=== PATIENT | female | born 1950 | race Caucasian/White ===

== ENCOUNTER 2018-08-03 11:13 | Inpatient (IN) | payer MEDICARE, OTHER ==
[2018-08-03] MEDS: ONDANSETRON 4 MG INJ IV (11:47)
[2018-08-03] MEDS: morphine 4 MG/ML VIAL IV (11:47)
[2018-08-03] MEDS: SODIUM CHLORIDE 0.9% 1L BAG IV* (11:47)
[2018-08-03 11:51] LABS: ADD MAN DIFF? NO
[2018-08-03 12:00] LABS: ABNORMAL IP MESSAGE 1; BASOPHILS % 0.3 % (0.0-2.0); HEMATOCRIT 45.6 % (37.0-47.0); HEMOGLOBIN 14.7 g/dl (12.0-16.0); LYMPHOCYTES # 1.2 10^3/ul (0.8-2.9); LYMPHOCYTES % 7.9 % (15.0-51.0); MEAN CORPUSCULAR HEMOGLOBIN 27.3 pg (29.0-33.0); MEAN CORPUSCULAR HGB CONC 32.2 g/dl (32.0-37.0); MEAN CORPUSCULAR VOLUME 84.8 fl (82.0-101.0); MEAN PLATELET VOLUME 10.4 fl (7.4-10.4); MONOCYTE # 3.2 10^3/ul (0.3-0.9); MONOCYTES % 20.8 % (0.0-11.0); NEUTROPHIL # 10.7 10^3/ul (1.6-7.5); NEUTROPHILS % 69.2 % (39.0-77.0); NUCLEATED RED BLOOD CELLS% 0.2 /100WBC (0.0-0.0); PLATELET COUNT 84 10^3/UL (140-415); RED BLOOD COUNT 5.38 10^6/ul (4.20-5.40); RED CELL DISTRIBUTION WIDTH 19.1 % (11.5-14.5)
[2018-08-03 12:00] LABS: WHITE BLOOD COUNT 15.4 10^3/ul (4.8-10.8)
[2018-08-03 12:07] LABS: POSITIVE DIFF @See below
[2018-08-03 12:17] LABS: ALANINE AMINOTRANSFERASE 50 IU/L (13-69); ALBUMIN 2.8 g/dl (3.3-4.9); ALKALINE PHOSPHATASE 236 IU/L (42-121); ANION GAP 19 (8-16); ASPARTATE AMINO TRANSFERASE 119 IU/L (15-46); BILIRUBIN,INDIRECT 1.8 mg/dl (0-1.1); BILIRUBIN,TOTAL 8.4 mg/dl (0.2-1.3); BLOOD UREA NITROGEN 20 mg/dl (7-20); CALCIUM 9.1 mg/dl (8.4-10.2); CARBON DIOXIDE 26 mmol/L (21-31); CHLORIDE 86 mmol/L (97-110); CREATININE 0.79 mg/dl (0.44-1.00); GLUCOSE 206 mg/dl (70-220); LIPASE 1230 U/L (23-300); POTASSIUM 4.3 mmol/L (3.5-5.1); SODIUM 127 mmol/L (135-144)
[2018-08-03 12:18] LABS: INR 1.29; PARTIAL THROMBOPLASTIN TIME 36.7 Sec (23.0-35.0); PROTIME 16.3 Sec (11.9-14.9); PT RATIO 1.3
[2018-08-03 12:27] LABS: TROPONIN-I < 0.012 ng/ml (0.000-0.120)
[2018-08-03] MEDS: PIPER-TAZO 3.375 GM IV (PMX) 100 ML IVPB ×3 (13:38→23:13)
[2018-08-03 13:39] LABS: ANISOCYTOSIS 1+ (0-0); BAND NEUTROPHILS #M 1.3 10^3/ul (0.0-0.6); BAND NEUTROPHILS % (M) 9 % (0-4); GIANT THROMBO% (M) 1 % (0-0); LYMPHOCYTES #M 0.1 10^3/ul (0.8-2.9); LYMPHOCYTES % (M) 1 % (15-51); MICROCYTOSIS 1+ (0-0); MONOCYTES % (M) 13 % (0-11); PLATELET ESTIMATE DECREASED; POIKILOCYTOSIS 2+ (0-0); POLYCHROMASIA 1+ (0-0); PROMYELOCYTES #M 0.1 10^3/ul (0-0); PROMYELOCYTES % (M) 1 % (0-0); REACTIVE LYMPHOCYTES #M 0.1 10^3/ul (0.0-0.0); REACTIVE LYMPHOCYTES% (M) 1 % (0-0); SEG NEUT #M 11.8 10^3/ul (1.6-7.5); SEGMENTED NEUTROPHILS (M) % 75 % (39-77); SMUDGE%M 23 % (0-0)
[2018-08-03] MEDS ORDERED: ACETAMINOPHEN 325 MG TAB PO ×2 (14:00→14:30)
[2018-08-03] MEDS ORDERED: ONDANSETRON 4 MG INJ IV ×2 (14:00→14:30)
[2018-08-03] MEDS ORDERED: NITROGLYCERIN (SL) 0.4 MG TAB SL (14:30)
[2018-08-03] MEDS ORDERED: NACL 0.9% 3 ML SYG IV (14:30)
[2018-08-03] MEDS ORDERED: NA PHOSPHATE/BIPHOS 133 ML ENEMA PR (14:30)
[2018-08-03] MEDS ORDERED: hydrALAzine 20 MG INJ IV (14:30)
[2018-08-03] MEDS ORDERED: ALBUTEROL/IPRATROPIUM (NEB) 3 ML AMP HHN (14:30)
[2018-08-03] MEDS ORDERED: LORAZEPAM 2 MG INJ IV (14:30)
[2018-08-03] MEDS: DOCUSATE SODIUM 100 MG CAP PO (15:58)
[2018-08-03] MEDS: SOD CHLORIDE 0.45% 1,000 ML IV (15:58)
[2018-08-03] MEDS: MAGNESIUM HYDROXIDE 30ML CUP PO (15:58)
[2018-08-03] MEDS ORDERED: DEXTROSE 50% 50 ML SYRINGE IV ×2 (16:30)
[2018-08-03] MEDS ORDERED: GLUCOSE GEL 15 GRAM TUBE PO ×2 (16:30)
[2018-08-03] MEDS ORDERED: GLUCAGON 1 MG INJ IM (16:30)
[2018-08-03] MEDS ORDERED: GLUCOSE GEL 15 GRAM TUBE BUCCAL (16:30)
[2018-08-03 17:14] LABS: LACTIC ACID 3.1 mmol/L (0.5-2.0)
[2018-08-03] MEDS: SOD CHLORIDE 0.9% 1,000 ML IV (17:54)
[2018-08-03 18:19] LABS: INR 1.32; PROTIME 16.6 Sec (11.9-14.9); PT RATIO 1.3
[2018-08-03 18:20] LABS: PARTIAL THROMBOPLASTIN TIME 38.3 Sec (23.0-35.0)
[2018-08-03 18:26] LABS: LACTIC ACID 2.7 mmol/L (0.5-2.0)
[2018-08-03] MEDS: INSULIN ASPART [NOVOLOG] 3 ML PEN SC ×2 (18:29→20:34)
[2018-08-03] MEDS: IOHEXOL 300MG/ML 150 ML BTL (19:51)
[2018-08-03] MEDS: SOD CHLORIDE 0.9% 100 ML (19:51)
[2018-08-03] MEDS: RANITIDINE 150 MG TAB PO (20:36)
[2018-08-03] MEDS: METOPROLOL 25 MG TAB PO (20:36)
[2018-08-03] MEDS: morphine (ER) 15 MG TAB PO ×2 (21:00→23:37)
[2018-08-03] MEDS ORDERED: HEPARIN 5,000 UNIT/0.5 ML VIAL SC (21:00)
[2018-08-03 21:01] LABS: FREE T4 (FREE THYROXINE) 2.64 ng/dl (0.78-2.44)
[2018-08-03] MEDS: BARIUM SULF 2% 450 ML BTL (BERRY SMOOTHIE) PO (21:39)
[2018-08-03 23:26] LABS: LACTIC ACID 4.2 mmol/L (0.5-2.0)
[2018-08-04 02:38] LABS: LACTIC ACID 2.6 mmol/L (0.5-2.0)
[2018-08-04] MEDS: PIPER-TAZO 3.375 GM IV (PMX) 100 ML IVPB ×4 (04:36→23:58)
[2018-08-04 06:11] LABS: ADD MAN DIFF? NO
[2018-08-04 06:16] LABS: ABNORMAL IP MESSAGE 1; BASOPHILS % 0.1 % (0.0-2.0); HEMATOCRIT 31.8 % (37.0-47.0); HEMOGLOBIN 10.3 g/dl (12.0-16.0); LYMPHOCYTES # 0.9 10^3/ul (0.8-2.9); LYMPHOCYTES % 8.5 % (15.0-51.0); MEAN CORPUSCULAR HEMOGLOBIN 27.2 pg (29.0-33.0); MEAN CORPUSCULAR HGB CONC 32.4 g/dl (32.0-37.0); MEAN CORPUSCULAR VOLUME 84.1 fl (82.0-101.0); MEAN PLATELET VOLUME 10.4 fl (7.4-10.4); MONOCYTE # 2.5 10^3/ul (0.3-0.9); MONOCYTES % 23.9 % (0.0-11.0); NEUTROPHILS % 66.3 % (39.0-77.0); NUCLEATED RED BLOOD CELLS% 0.3 /100WBC (0.0-0.0); PLATELET COUNT 78 10^3/UL (140-415); RED BLOOD COUNT 3.78 10^6/ul (4.20-5.40); RED CELL DISTRIBUTION WIDTH 18.7 % (11.5-14.5)
[2018-08-04 06:16] LABS: WHITE BLOOD COUNT 10.6 10^3/ul (4.8-10.8)
[2018-08-04] MEDS: SOD CHLORIDE 0.9% 1,000 ML IV ×2 (06:20→10:22)
[2018-08-04 06:28] LABS: POSITIVE DIFF @See below
[2018-08-04 06:52] LABS: ALANINE AMINOTRANSFERASE 48 IU/L (13-69); ALBUMIN 1.9 g/dl (3.3-4.9); ALKALINE PHOSPHATASE 165 IU/L (42-121); ASPARTATE AMINO TRANSFERASE 97 IU/L (15-46); BILIRUBIN,INDIRECT 1.4 mg/dl (0-1.1); BILIRUBIN,TOTAL 6.9 mg/dl (0.2-1.3); TOTAL PROTEIN 4.6 g/dl (6.1-8.1)
[2018-08-04 06:58] LABS: ANION GAP 11 (8-16); CALCIUM 7.7 mg/dl (8.4-10.2); CARBON DIOXIDE 26 mmol/L (21-31); CHLORIDE 95 mmol/L (97-110); CREATININE 0.55 mg/dl (0.44-1.00); GLUCOSE 101 mg/dl (70-220); LIPASE 850 U/L (23-300); MAGNESIUM 1.6 mg/dl (1.7-2.5); PHOSPHORUS 3.3 mg/dl (2.5-4.9); POTASSIUM 3.4 mmol/L (3.5-5.1); SODIUM 129 mmol/L (135-144)
[2018-08-04 07:07] LABS: CHOLESTEROL 75 mg/dl (100-200)
[2018-08-04 07:07] LABS: CHOL/HDL RATIO 6.8 RATIO; HDL CHOLESTEROL 11 mg/dl (33-92); LDL CHOLESTEROL,CALCULATED 2 mg/dl; TRIGLYCERIDES 311 mg/dl (0-149)
[2018-08-04 07:47] LABS: BLOOD UREA NITROGEN 19 mg/dl (7-20)
[2018-08-04] MEDS: INSULIN ASPART [NOVOLOG] 3 ML PEN SC ×4 (07:55→20:54)
[2018-08-04 08:13] LABS: HEMOGLOBIN A1C 6.4 % (0-5.9)
[2018-08-04 09:00] LABS: LACTIC ACID 1.9 mmol/L (0.5-2.0)
[2018-08-04] MEDS: TIOTROPIUM 18 MCG CAPSULE INHA DEV INH (09:16)
[2018-08-04] MEDS: RANITIDINE 150 MG TAB PO ×2 (09:17→20:53)
[2018-08-04] MEDS: METOPROLOL 25 MG TAB PO ×2 (09:17→20:54)
[2018-08-04] MEDS: morphine (ER) 15 MG TAB PO ×2 (09:17→20:54)
[2018-08-04] MEDS: LIDOCAINE 1% (MPF) 5 ML VIAL (12:00)
[2018-08-04] MEDS: MIDAZOLAM 1 MG/ML 2 ML INJ (12:20)
[2018-08-04] MEDS: FENTAnyl 50 MCG/ML VIAL (12:20)
[2018-08-04] MEDS: MAGNESIUM SULFATE 1 GM/D5W 100 ML IVPB (13:22)
[2018-08-04 13:51] LABS: HEMATOCRIT 35.2 % (37.0-47.0); HEMOGLOBIN 11.2 g/dl (12.0-16.0)
[2018-08-04 14:28] LABS: LACTIC ACID 2.2 mmol/L (0.5-2.0)
[2018-08-04] MEDS: POTASSIUM CHLORIDE 100 ML IVPB ×2 (14:28→16:39)
[2018-08-04] MEDS: HYDROCODONE/APAP (5/325) TAB PO (16:19)
[2018-08-05] MEDS: PIPER-TAZO 3.375 GM IV (PMX) 100 ML IVPB ×4 (05:41→23:43)
[2018-08-05] MEDS: SOD CHLORIDE 0.9% 1,000 ML IV ×4 (05:41→22:20)
[2018-08-05 07:04] LABS: ADD MAN DIFF? NO
[2018-08-05 07:08] LABS: ABNORMAL IP MESSAGE 1; BASOPHILS % 0.1 % (0.0-2.0); HEMATOCRIT 36.5 % (37.0-47.0); HEMOGLOBIN 11.6 g/dl (12.0-16.0); LYMPHOCYTES # 0.8 10^3/ul (0.8-2.9); LYMPHOCYTES % 6.6 % (15.0-51.0); MEAN CORPUSCULAR HEMOGLOBIN 27.2 pg (29.0-33.0); MEAN CORPUSCULAR HGB CONC 31.8 g/dl (32.0-37.0); MEAN CORPUSCULAR VOLUME 85.7 fl (82.0-101.0); MEAN PLATELET VOLUME 10.6 fl (7.4-10.4); MONOCYTE # 2.3 10^3/ul (0.3-0.9); MONOCYTES % 19.4 % (0.0-11.0); NEUTROPHIL # 8.5 10^3/ul (1.6-7.5); NEUTROPHILS % 72.2 % (39.0-77.0); NUCLEATED RED BLOOD CELLS% 0.2 /100WBC (0.0-0.0); RED BLOOD COUNT 4.26 10^6/ul (4.20-5.40); RED CELL DISTRIBUTION WIDTH 19.8 % (11.5-14.5)
[2018-08-05 07:08] LABS: WHITE BLOOD COUNT 11.8 10^3/ul (4.8-10.8)
[2018-08-05 07:20] LABS: POSITIVE DIFF @See below
[2018-08-05 07:21] LABS: PLATELET COUNT 85 10^3/UL (140-415)
[2018-08-05] MEDS: INSULIN ASPART [NOVOLOG] 3 ML PEN SC ×4 (07:49→20:55)
[2018-08-05 07:51] LABS: PHOSPHORUS 2.7 mg/dl (2.5-4.9)
[2018-08-05 07:51] LABS: MAGNESIUM 1.9 mg/dl (1.7-2.5)
[2018-08-05 07:53] LABS: ANION GAP 10 (8-16); BLOOD UREA NITROGEN 14 mg/dl (7-20); CALCIUM 7.8 mg/dl (8.4-10.2); CARBON DIOXIDE 27 mmol/L (21-31); CHLORIDE 96 mmol/L (97-110); CREATININE 0.61 mg/dl (0.44-1.00); GLUCOSE 84 mg/dl (70-220); POTASSIUM 3.9 mmol/L (3.5-5.1); SODIUM 129 mmol/L (135-144)
[2018-08-05] MEDS: RANITIDINE 150 MG TAB PO ×2 (09:14→20:55)
[2018-08-05] MEDS: TIOTROPIUM 18 MCG CAPSULE INHA DEV INH (09:14)
[2018-08-05] MEDS: morphine (ER) 15 MG TAB PO ×2 (09:19→20:55)
[2018-08-05] MEDS: METOPROLOL 25 MG TAB PO ×2 (09:19→20:55)
[2018-08-05] MEDS: morphine 2 MG INJ IV (14:23)
[2018-08-06] MEDS: PIPER-TAZO 3.375 GM IV (PMX) 100 ML IVPB ×3 (05:55→17:34)
[2018-08-06] MEDS: INSULIN ASPART [NOVOLOG] 3 ML PEN SC ×4 (07:43→21:00)
[2018-08-06] MEDS: TIOTROPIUM 18 MCG CAPSULE INHA DEV INH (08:09)
[2018-08-06] MEDS: METOPROLOL 25 MG TAB PO ×2 (08:11→20:35)
[2018-08-06] MEDS: RANITIDINE 150 MG TAB PO ×2 (08:11→20:36)
[2018-08-06 08:12] LABS: ADD MAN DIFF? NO
[2018-08-06] MEDS: morphine (ER) 15 MG TAB PO ×2 (08:12→20:36)
[2018-08-06 08:22] LABS: ABNORMAL IP MESSAGE 1; BASOPHILS % 0.1 % (0.0-2.0); HEMATOCRIT 33.7 % (37.0-47.0); HEMOGLOBIN 10.9 g/dl (12.0-16.0); LYMPHOCYTES % 7.9 % (15.0-51.0); MEAN CORPUSCULAR HEMOGLOBIN 27.4 pg (29.0-33.0); MEAN CORPUSCULAR HGB CONC 32.3 g/dl (32.0-37.0); MEAN CORPUSCULAR VOLUME 84.7 fl (82.0-101.0); MEAN PLATELET VOLUME 10.2 fl (7.4-10.4); MONOCYTE # 2.6 10^3/ul (0.3-0.9); MONOCYTES % 21.5 % (0.0-11.0); NEUTROPHIL # 8.3 10^3/ul (1.6-7.5); NEUTROPHILS % 68.8 % (39.0-77.0); PLATELET COUNT 96 10^3/UL (140-415); RED BLOOD COUNT 3.98 10^6/ul (4.20-5.40); RED CELL DISTRIBUTION WIDTH 19.5 % (11.5-14.5)
[2018-08-06 08:22] LABS: WHITE BLOOD COUNT 12.1 10^3/ul (4.8-10.8)
[2018-08-06 08:23] LABS: POSITIVE DIFF @See below
[2018-08-06 08:52] LABS: ANION GAP 13 (8-16); BLOOD UREA NITROGEN 11 mg/dl (7-20); CALCIUM 7.8 mg/dl (8.4-10.2); CARBON DIOXIDE 23 mmol/L (21-31); CHLORIDE 97 mmol/L (97-110); CREATININE 0.48 mg/dl (0.44-1.00); GLUCOSE 100 mg/dl (70-220); POTASSIUM 3.5 mmol/L (3.5-5.1); SODIUM 129 mmol/L (135-144)
[2018-08-06 11:39] LABS: HAAIG REFLEX REFLEX FILED
[2018-08-06 11:47] LABS: URIC ACID 2.1 mg/dl (3.1-7.9)
[2018-08-06 11:47] LABS: LACTATE DEHYDROGENASE 1581 IU/L (313-618)
[2018-08-06] MEDS: HEPARIN 5,000 UNIT/0.5 ML VIAL SC ×2 (12:04→21:08)
[2018-08-06 12:21] LABS: HEPATITIS B SURFACE ANTIGEN NEGATIVE (NEGATIVE)
[2018-08-06 12:39] LABS: HEPATITIS B CORE ANTIBODY NEGATIVE (NEGATIVE); HEPATITIS C VIRAL ANTIBODY NEGATIVE (NEGATIVE)
[2018-08-06] MEDS: SOD CHLORIDE 0.9% 1,000 ML IV (14:17)
[2018-08-06] MEDS: IOHEXOL 300MG/ML 150 ML BTL (14:37)
[2018-08-06] MEDS: SOD CHLORIDE 0.9% 100 ML (14:38)
[2018-08-07] MEDS: PIPER-TAZO 3.375 GM IV (PMX) 100 ML IVPB ×5 (01:55→23:35)
[2018-08-07] MEDS: SOD CHLORIDE 0.9% 1,000 ML IV ×2 (02:36→18:38)
[2018-08-07 05:04] LABS: ADD MAN DIFF? NO
[2018-08-07 05:09] LABS: WHITE BLOOD COUNT 12.3 10^3/ul (4.8-10.8)
[2018-08-07 05:09] LABS: ABNORMAL IP MESSAGE 1; BASOPHILS % 0.1 % (0.0-2.0); HEMATOCRIT 33.7 % (37.0-47.0); HEMOGLOBIN 10.8 g/dl (12.0-16.0); LYMPHOCYTES # 0.8 10^3/ul (0.8-2.9); LYMPHOCYTES % 6.2 % (15.0-51.0); MEAN CORPUSCULAR HEMOGLOBIN 27.2 pg (29.0-33.0); MEAN CORPUSCULAR VOLUME 84.9 fl (82.0-101.0); MEAN PLATELET VOLUME 9.5 fl (7.4-10.4); MONOCYTE # 2.5 10^3/ul (0.3-0.9); NEUTROPHIL # 8.8 10^3/ul (1.6-7.5); NEUTROPHILS % 71.5 % (39.0-77.0); PLATELET COUNT 87 10^3/UL (140-415); RED BLOOD COUNT 3.97 10^6/ul (4.20-5.40); RED CELL DISTRIBUTION WIDTH 19.9 % (11.5-14.5)
[2018-08-07 05:25] LABS: MAGNESIUM 1.7 mg/dl (1.7-2.5)
[2018-08-07 05:25] LABS: PHOSPHORUS 2.3 mg/dl (2.5-4.9)
[2018-08-07 05:27] LABS: ANION GAP 11 (8-16); BLOOD UREA NITROGEN 9 mg/dl (7-20); CALCIUM 7.8 mg/dl (8.4-10.2); CARBON DIOXIDE 23 mmol/L (21-31); CHLORIDE 98 mmol/L (97-110); GLUCOSE 103 mg/dl (70-220); POTASSIUM 3.4 mmol/L (3.5-5.1); SODIUM 129 mmol/L (135-144)
[2018-08-07 05:39] LABS: POSITIVE DIFF @See below
[2018-08-07 07:28] LABS: LIPASE 674 U/L (23-300)
[2018-08-07] MEDS: INSULIN ASPART [NOVOLOG] 3 ML PEN SC ×4 (07:50→20:21)
[2018-08-07] MEDS: RANITIDINE 150 MG TAB PO ×2 (08:45→20:21)
[2018-08-07] MEDS: morphine (ER) 15 MG TAB PO ×2 (08:45→20:21)
[2018-08-07] MEDS: METOPROLOL 25 MG TAB PO ×2 (08:46→20:20)
[2018-08-07] MEDS: HEPARIN 5,000 UNIT/0.5 ML VIAL SC (08:50)
[2018-08-07] MEDS: TIOTROPIUM 18 MCG CAPSULE INHA DEV INH (11:12)
[2018-08-07] MEDS: oxyCODONE 5 MG TAB PO (11:30)
[2018-08-07] MEDS: POTASSIUM CHLORIDE (SR) 20 MEQ TAB PO (11:30)
[2018-08-07] MEDS: SODIUM PHOSPHATE 15 MMOL in SOD CHLORIDE 0.9% 250 ML IVPB (12:33)
[2018-08-08] MEDS: PIPER-TAZO 3.375 GM IV (PMX) 100 ML IVPB ×4 (05:15→23:38)
[2018-08-08 05:26] LABS: ADD MAN DIFF? NO
[2018-08-08 05:37] LABS: WHITE BLOOD COUNT 11.9 10^3/ul (4.8-10.8)
[2018-08-08 05:37] LABS: ABNORMAL IP MESSAGE 1; BASOPHILS % 0.1 % (0.0-2.0); HEMATOCRIT 34.3 % (37.0-47.0); LYMPHOCYTES # 0.8 10^3/ul (0.8-2.9); LYMPHOCYTES % 7.1 % (15.0-51.0); MEAN CORPUSCULAR HEMOGLOBIN 27.2 pg (29.0-33.0); MEAN CORPUSCULAR HGB CONC 32.1 g/dl (32.0-37.0); MEAN CORPUSCULAR VOLUME 84.7 fl (82.0-101.0); MEAN PLATELET VOLUME 9.3 fl (7.4-10.4); MONOCYTE # 2.6 10^3/ul (0.3-0.9); MONOCYTES % 22.1 % (0.0-11.0); NEUTROPHIL # 8.1 10^3/ul (1.6-7.5); NEUTROPHILS % 67.9 % (39.0-77.0); NUCLEATED RED BLOOD CELLS% 0.2 /100WBC (0.0-0.0); PLATELET COUNT 90 10^3/UL (140-415); RED BLOOD COUNT 4.05 10^6/ul (4.20-5.40); RED CELL DISTRIBUTION WIDTH 20.1 % (11.5-14.5)
[2018-08-08 05:38] LABS: POSITIVE DIFF @See below
[2018-08-08 05:39] LABS: PHOSPHORUS 2.3 mg/dl (2.5-4.9)
[2018-08-08 05:39] LABS: MAGNESIUM 1.7 mg/dl (1.7-2.5)
[2018-08-08 05:50] LABS: ANION GAP 11 (8-16); BLOOD UREA NITROGEN 10 mg/dl (7-20); CARBON DIOXIDE 24 mmol/L (21-31); CHLORIDE 100 mmol/L (97-110); CREATININE 0.57 mg/dl (0.44-1.00); GLUCOSE 108 mg/dl (70-220); POTASSIUM 3.6 mmol/L (3.5-5.1); SODIUM 131 mmol/L (135-144)
[2018-08-08] MEDS: INSULIN ASPART [NOVOLOG] 3 ML PEN SC ×4 (07:50→21:00)
[2018-08-08] MEDS: RANITIDINE 150 MG TAB PO ×2 (08:30→21:09)
[2018-08-08] MEDS: morphine (ER) 15 MG TAB PO ×2 (08:30→21:09)
[2018-08-08] MEDS: TIOTROPIUM 18 MCG CAPSULE INHA DEV INH (08:31)
[2018-08-08] MEDS: METOPROLOL 25 MG TAB PO ×2 (09:00→21:00)
[2018-08-08] MEDS: CEFAZOLIN 1 GM/50 ML (PMX) 50 ML IVPB (11:30)
[2018-08-08] MEDS: LIDOCAINE 1%/EPI 30 ML INJ (12:00)
[2018-08-08] MEDS: MIDAZOLAM 1 MG/ML 2 ML INJ (12:00)
[2018-08-08] MEDS: FENTAnyl 50 MCG/ML VIAL (12:00)
[2018-08-08] MEDS: POLYMYXIN/BACITRACIN 1L IRRIG IRR (12:20)
[2018-08-08] MEDS: HEPARIN 1000 UNITS/ML 10 ML INJ (12:25)
[2018-08-08] MEDS: SOD CHLORIDE 0.9% 1,000 ML IV (18:49)
[2018-08-08] MEDS: AL HYDROX/MG HYDROX/SIMETH 30 ML CUP PO (23:38)
[2018-08-08] MEDS: FAMOTIDINE 20 MG TAB PO (23:38)
[2018-08-09 04:52] LABS: ADD MAN DIFF? NO
[2018-08-09 05:00] LABS: ABNORMAL IP MESSAGE 1; BASOPHILS % 0.2 % (0.0-2.0); HEMATOCRIT 34.6 % (37.0-47.0); HEMOGLOBIN 11.1 g/dl (12.0-16.0); LYMPHOCYTES # 0.8 10^3/ul (0.8-2.9); LYMPHOCYTES % 6.3 % (15.0-51.0); MEAN CORPUSCULAR HEMOGLOBIN 27.2 pg (29.0-33.0); MEAN CORPUSCULAR HGB CONC 32.1 g/dl (32.0-37.0); MEAN CORPUSCULAR VOLUME 84.8 fl (82.0-101.0); MEAN PLATELET VOLUME 9.7 fl (7.4-10.4); MONOCYTE # 2.6 10^3/ul (0.3-0.9); MONOCYTES % 21.2 % (0.0-11.0); NEUTROPHIL # 8.4 10^3/ul (1.6-7.5); NEUTROPHILS % 69.4 % (39.0-77.0); NUCLEATED RED BLOOD CELLS% 0.2 /100WBC (0.0-0.0); PLATELET COUNT 88 10^3/UL (140-415); RED BLOOD COUNT 4.08 10^6/ul (4.20-5.40); RED CELL DISTRIBUTION WIDTH 20.8 % (11.5-14.5)
[2018-08-09 05:00] LABS: WHITE BLOOD COUNT 12.1 10^3/ul (4.8-10.8)
[2018-08-09 05:02] LABS: POSITIVE DIFF @See below
[2018-08-09 05:31] LABS: ANION GAP 10 (8-16); BLOOD UREA NITROGEN 10 mg/dl (7-20); CARBON DIOXIDE 24 mmol/L (21-31); CHLORIDE 101 mmol/L (97-110); CREATININE 0.53 mg/dl (0.44-1.00); GLUCOSE 109 mg/dl (70-220); POTASSIUM 3.4 mmol/L (3.5-5.1); SODIUM 132 mmol/L (135-144)
[2018-08-09] MEDS: PIPER-TAZO 3.375 GM IV (PMX) 100 ML IVPB ×3 (05:58→21:14)
[2018-08-09] MEDS: INSULIN ASPART [NOVOLOG] 3 ML PEN SC ×4 (07:50→21:00)
[2018-08-09] MEDS: SOD CHLORIDE 0.9% 1,000 ML IV ×2 (09:25→23:28)
[2018-08-09] MEDS: morphine (ER) 15 MG TAB PO ×2 (09:27→21:13)
[2018-08-09] MEDS: RANITIDINE 150 MG TAB PO ×2 (09:27→21:13)
[2018-08-09] MEDS: FAMOTIDINE 20 MG TAB PO (09:27)
[2018-08-09] MEDS: METOPROLOL 25 MG TAB PO ×2 (09:28→21:00)
[2018-08-09] MEDS: TIOTROPIUM 18 MCG CAPSULE INHA DEV INH (09:56)
[2018-08-09] MEDS: HYDROCODONE/APAP (5/325) TAB PO (12:24)
[2018-08-09] MEDS: POTASSIUM CHLORIDE 20 MEQ POWDER FOR ORAL SOLN NGT (15:45)
[2018-08-10] MEDS: HYDROCODONE/APAP (5/325) TAB PO (01:06)
[2018-08-10] MEDS: PIPER-TAZO 3.375 GM IV (PMX) 100 ML IVPB ×4 (01:51→17:57)
[2018-08-10 05:01] LABS: ADD MAN DIFF? NO
[2018-08-10 05:14] LABS: ABNORMAL IP MESSAGE 1; BASOPHILS % 0.1 % (0.0-2.0); HEMATOCRIT 32.9 % (37.0-47.0); HEMOGLOBIN 10.6 g/dl (12.0-16.0); LYMPHOCYTES # 0.8 10^3/ul (0.8-2.9); LYMPHOCYTES % 6.5 % (15.0-51.0); MEAN CORPUSCULAR HEMOGLOBIN 27.4 pg (29.0-33.0); MEAN CORPUSCULAR HGB CONC 32.2 g/dl (32.0-37.0); MEAN PLATELET VOLUME 9.3 fl (7.4-10.4); MONOCYTE # 2.7 10^3/ul (0.3-0.9); MONOCYTES % 21.1 % (0.0-11.0); NEUTROPHIL # 8.8 10^3/ul (1.6-7.5); NEUTROPHILS % 70.1 % (39.0-77.0); NUCLEATED RED BLOOD CELLS% 0.2 /100WBC (0.0-0.0); RED BLOOD COUNT 3.87 10^6/ul (4.20-5.40); RED CELL DISTRIBUTION WIDTH 21.4 % (11.5-14.5)
[2018-08-10 05:14] LABS: WHITE BLOOD COUNT 12.6 10^3/ul (4.8-10.8)
[2018-08-10 05:23] LABS: POSITIVE DIFF @See below
[2018-08-10 05:24] LABS: PLATELET COUNT 73 10^3/UL (140-415)
[2018-08-10 05:31] LABS: ANION GAP 11 (8-16); BLOOD UREA NITROGEN 12 mg/dl (7-20); CALCIUM 7.9 mg/dl (8.4-10.2); CARBON DIOXIDE 23 mmol/L (21-31); CHLORIDE 103 mmol/L (97-110); CREATININE 0.52 mg/dl (0.44-1.00); GLUCOSE 128 mg/dl (70-220); POTASSIUM 3.6 mmol/L (3.5-5.1); SODIUM 133 mmol/L (135-144)
[2018-08-10] MEDS: INSULIN ASPART [NOVOLOG] 3 ML PEN SC ×4 (07:50→21:00)
[2018-08-10] MEDS: RANITIDINE 150 MG TAB PO ×2 (08:50→21:02)
[2018-08-10] MEDS: TIOTROPIUM 18 MCG CAPSULE INHA DEV INH (08:50)
[2018-08-10] MEDS: morphine (ER) 15 MG TAB PO ×2 (08:50→21:03)
[2018-08-10] MEDS: FAMOTIDINE 20 MG TAB PO (08:51)
[2018-08-10] MEDS: ENOXAPARIN 40 MG/0.4 ML SYG SC (08:51)
[2018-08-10] MEDS: METOPROLOL 25 MG TAB PO ×2 (08:54→21:00)
[2018-08-10] MEDS: morphine LIQ (10 MG/5 ML) CUP PO (13:07)
[2018-08-10] MEDS: SOD CHLORIDE 0.9% 1,000 ML IV (15:51)
[2018-08-11] MEDS: morphine LIQ (10 MG/5 ML) CUP PO ×2 (02:42→12:24)
[2018-08-11] MEDS: SOD CHLORIDE 0.9% 1,000 ML IV ×2 (04:58→18:21)
[2018-08-11 05:14] LABS: WHITE BLOOD COUNT 13.9 10^3/ul (4.8-10.8)
[2018-08-11 05:14] LABS: ABNORMAL IP MESSAGE 1; HEMATOCRIT 34.5 % (37.0-47.0); HEMOGLOBIN 11.1 g/dl (12.0-16.0); MEAN CORPUSCULAR HEMOGLOBIN 27.3 pg (29.0-33.0); MEAN CORPUSCULAR HGB CONC 32.2 g/dl (32.0-37.0); MEAN PLATELET VOLUME 8.7 fl (7.4-10.4); NUCLEATED RED BLOOD CELLS% 0.4 /100WBC (0.0-0.0); PLATELET COUNT 86 10^3/UL (140-415); RED BLOOD COUNT 4.06 10^6/ul (4.20-5.40); RED CELL DISTRIBUTION WIDTH 21.8 % (11.5-14.5)
[2018-08-11 05:38] LABS: LACTIC ACID 2.7 mmol/L (0.5-2.0)
[2018-08-11 05:47] LABS: ADD MAN DIFF? YES; POSITIVE DIFF @See below
[2018-08-11 05:51] LABS: ANION GAP 11 (8-16); BLOOD UREA NITROGEN 12 mg/dl (7-20); CALCIUM 7.8 mg/dl (8.4-10.2); CARBON DIOXIDE 22 mmol/L (21-31); CHLORIDE 102 mmol/L (97-110); GLUCOSE 118 mg/dl (70-220); POTASSIUM 3.5 mmol/L (3.5-5.1); SODIUM 131 mmol/L (135-144)
[2018-08-11 06:48] LABS: ANISOCYTOSIS 2+ (0-0); BAND NEUTROPHILS #M 1.3 10^3/ul (0.0-0.6); BAND NEUTROPHILS % (M) 10 % (0-4); GIANT THROMBO% (M) 1 % (0-0); LYMPHOCYTES #M 0.5 10^3/ul (0.8-2.9); LYMPHOCYTES % (M) 4 % (15-51); MICROCYTOSIS 1+ (0-0); MONOCYTE #M 1.2 10^3/ul (0.3-0.9); MONOCYTES % (M) 9 % (0-11); PLATELET ESTIMATE DECREASED; POIKILOCYTOSIS 1+ (0-0); SEG NEUT #M 10.9 10^3/ul (1.6-7.5); SEGMENTED NEUTROPHILS (M) % 77 % (39-77); SMUDGE%M 15 % (0-0); SPHEROCYTES 1+ (0-0)
[2018-08-11] MEDS: ALBUMIN HUMAN 25% 100 ML IV ×2 (06:53→07:00)
[2018-08-11] MEDS: INSULIN ASPART [NOVOLOG] 3 ML PEN SC ×4 (07:50→21:00)
[2018-08-11] MEDS: TIOTROPIUM 18 MCG CAPSULE INHA DEV INH (08:50)
[2018-08-11] MEDS: FAMOTIDINE 20 MG TAB PO (08:53)
[2018-08-11] MEDS: RANITIDINE 150 MG TAB PO ×2 (08:53→21:35)
[2018-08-11] MEDS: METOPROLOL 25 MG TAB PO ×2 (08:53→21:35)
[2018-08-11] MEDS: morphine (ER) 15 MG TAB PO ×2 (08:53→21:37)
[2018-08-11] MEDS: ENOXAPARIN 40 MG/0.4 ML SYG SC (08:56)
[2018-08-12] MEDS: morphine LIQ (10 MG/5 ML) CUP PO ×2 (00:55→12:39)
[2018-08-12] MEDS: SOD CHLORIDE 0.9% 1,000 ML IV (06:04)
[2018-08-12] MEDS: INSULIN ASPART [NOVOLOG] 3 ML PEN SC ×4 (08:55→21:00)
[2018-08-12] MEDS: RANITIDINE 150 MG TAB PO ×2 (08:56→21:00)
[2018-08-12] MEDS: morphine (ER) 15 MG TAB PO ×2 (08:56→21:00)
[2018-08-12] MEDS: METOPROLOL 25 MG TAB PO ×2 (08:57→21:00)
[2018-08-12] MEDS: ENOXAPARIN 40 MG/0.4 ML SYG SC (08:59)
[2018-08-12] MEDS: TIOTROPIUM 18 MCG CAPSULE INHA DEV INH (11:00)
[2018-08-12] MEDS: HYDROCODONE/APAP (5/325) TAB PO (11:00)
== END 2018-08-12 22:26 | disposition hospice, home (50) | DRG 823 ==
LOC: MS1 08-06 18:39 → E/R 11:13 → TEL 13:41
PROC: 0WBH3ZX Excision of Retroperitoneum, Percutaneous Approach, Diagnostic (ICD-10-PCS; principal; 2018-08-03)
PROC: 0JH60WZ Insertion of Totally Implantable Vascular Access Device into Chest Subcutaneous Tissue and Fascia, Open Approach (ICD-10-PCS; 2018-08-08)
PROC: 02HV33Z Insertion of Infusion Device into Superior Vena Cava, Percutaneous Approach (ICD-10-PCS; 2018-08-08)
DX: C83.30 Diffuse large B-cell lymphoma, unspecified site (principal); A41.9 Sepsis, unspecified organism; K85.90 Acute pancreatitis without necrosis or infection, unspecified; E87.1 Hypo-osmolality and hyponatremia; D69.6 Thrombocytopenia, unspecified; E11.9 Type 2 diabetes mellitus without complications; I95.89 Other hypotension; Z95.0 Presence of cardiac pacemaker; K86.89 Other specified diseases of pancreas; Z79.01 Long term (current) use of anticoagulants
CPT/HCPCS: 36415; 36561; 71045; 71270; 74176; 74177; 76705; 76942; 77012; 80048; 80061; 80076; 82962; 83036; 83605; 83615; 83690; 83735; 84100; 84439; 84443; 84484; 84560; 85014; 85018; 85025; 85610; 85730; 86704; 86709; 86803; 87040; 87340; 88307; 88313; 92610; 93005; 93306; 93970; 93971; 96374; 96375; 97110; 97163; 97166; 97530; 97535; 99291-25